=== PATIENT | female | born 2000 | race African-American/Black ===

== ENCOUNTER 2023-09-30 14:38 | Emergency (ER) | payer MEDICAID, OTHER ==
[~2023-09-30] VITALS: Ht 154.9 cm; Wt 97.0 kg
[2023-09-30 14:55] VITALS: BP 123/54; PULSE 100; RESP 18; O2SAT 96
[2023-09-30 15:38] LABS: Basophils # (auto) 0 10 ^3/uL (0-0.2); Basophils % (auto) 0.4 % (0.0-2.0); Eosinophils # (auto) 0 10 ^3/uL (0-0.8); Eosinophils % (auto) 0.6 % (0.0-7.0); Hematocrit 38.9 % (36.0-46.0); Hemoglobin 13.1 g/dL (12.2-16.2); Lymphocytes # (auto) 2.5 10 ^3/uL (0.4-5.4); Lymphocytes % (auto) 38.5 % (10.0-50.0); Mean Corpuscular Hemoglobin 28.7 pg (28.0-32.0); Mean Corpuscular Hgb Conc. 33.7 g/dL (32.0-36.0); Mean Corpuscular Volume 85.2 fL (80.0-100.0); Monocytes # (auto) 0.6 10 ^3/uL (0-1.3); Monocytes % (auto) 8.8 % (0.0-12.0); Neutrophils # (auto) 3.3 10 ^3/uL (1.6-8.6); Neutrophils % (auto) 51.7 % (37.0-80.0); Nucleated Red Blood Cells % 0.1 %; Red Blood Cells 4.56 10^6/uL (4.0-5.20); White Blood Cell 6.4 10^3/uL (4.4-10.8)
[2023-09-30 15:55] LABS: Alanine Aminotransferase 13 U/L (7-40); Albumin 4.4 g/dL (3.2-4.8); Alkaline Phosphatase 94 U/L (46-116); Anion Gap 4 (5-15); Aspartate Aminotransferase 15 U/L (13-40); BUN/Creatinine Ratio 9.5 (10.0-20.0); Bilirubin, Total 0.5 mg/dL (0.2-1.0); Blood Urea Nitrogen 9 mg/dL (9-23); Calcium 9.5 mg/dL (8.7-10.4); Carbon Dioxide 29 mmol/L (20-30); Chloride 107 mmol/L (98-107); Glucose 70 mg/dL (74-106); Potassium 4.3 mmol/L (3.5-5.1); Sodium 140 mmol/L (136-145); Total Protein 7.1 g/dL (5.7-8.2)
== END 2023-09-30 18:51 | disposition left against medical advice (07) ==
LOC: ER 14:38
DX: N93.8 Other specified abnormal uterine and vaginal bleeding (principal); R10.2 Pelvic and perineal pain; Z53.21 Procedure and treatment not carried out due to patient leaving prior to being seen by health care provider
CPT/HCPCS: 36415; 80053; 84702; 85025

== ENCOUNTER 2023-10-14 02:47 | Emergency (ER) | payer MEDICAID ==
[~2023-10-14] VITALS: Ht 154.9 cm; Wt 97.3 kg
[2023-10-14 03:06] VITALS: BP 137/89; PULSE 92; RESP 18; TEMP 98.4; O2SAT 98
[2023-10-14] MEDS ORDERED: CYCL-837 PO (04:53)
[2023-10-14] MEDS ORDERED: ACE3T PO (04:53)
[2023-10-14] MEDS: ACETAMINOPHEN/CODEINE#3 (300/30mg) TAB PO ONE (04:53)
[2023-10-14] MEDS: ONDANSETRON ODT 4 MG TAB PO ONE (04:54)
== END 2023-10-14 05:39 | disposition home or self-care (01) ==
LOC: ER 02:47
DX: S39.012A Strain of muscle, fascia and tendon of lower back, initial encounter (principal); G44.209 Tension-type headache, unspecified, not intractable; J45.909 Unspecified asthma, uncomplicated; Z32.02 Encounter for pregnancy test, result negative; V43.52XA Car driver injured in collision with other type car in traffic accident, initial encounter; Y93.89 Activity, other specified; Y92.488 Other paved roadways as the place of occurrence of the external cause; Y99.8 Other external cause status
CPT/HCPCS: 99283; Q0162